=== PATIENT | female | born 1965 | race Caucasian/White ===

== ENCOUNTER 2019-02-04 14:03 | Emergency (ER) | payer MEDICAID ==
[~2019-02-04] VITALS: Ht 167.6 cm; Wt 108.9 kg
--- NOTE | 2019-02-04 14:12 | NUR ---
Patient ambulated to bed 3. RN evaluating patient at bedside.
[2019-02-04 14:15] VITALS: BP 143/93
--- NOTE | 2019-02-04 14:29 | NUR ---
C/O SHARP L BUTTOCKS RADIATING DOWN L LEG X2 MONTHS 07/05. DENIES RECENT INJURY/TRAUMA. PER PT, SHE HAS A HX OF SCIATICA NERVE PROBLEMS. PT REPORTS TAKING ALEVE AT HOME YESTERDAY EVENING WITH NO RELIEF. PT RESTING IN BED, BED IN LOW POSITION. AWAITING ERMD EVALUATION.
[2019-02-04] MEDS ORDERED: MORPHINE SULFATE 2 MG/ML SYR IM ONE (15:00)
--- NOTE | 2019-02-04 15:08 | NUR ---
Dr. Walsh re-evaluating patient at bedside.
[2019-02-04 15:22] VITALS: BP 138/90
--- NOTE | 2019-02-04 15:22 | NUR ---
Patient discharged with v/s stable. Written and verbal after care instructions given and explained. Patient alert, oriented and verbalized understanding of instructions. Ambulatory with steady gait. All questions addressed prior to discharge. ID band removed. Patient advised to follow up with PMD. Rx of TRAMADOL, ROBAXIN, AND MOTRIN given. Patient educated on indication of medication including possible reaction and side effects. Opportunity to ask questions provided and answered. PT IS HAVING BOYFRIEND DRIVE HER HOME.
== END 2019-02-04 15:22 | disposition home or self-care (01) ==
LOC: MED 14:03
DX: M54.42 Lumbago with sciatica, left side (principal); J44.9 Chronic obstructive pulmonary disease, unspecified; F17.200 Nicotine dependence, unspecified, uncomplicated
CPT/HCPCS: 96372; 99283; J2270

== ENCOUNTER 2019-02-26 10:00 | Emergency (ER) | payer MEDICAID ==
[~2019-02-26] VITALS: Ht 165.1 cm; Wt 101.8 kg
--- NOTE | 2019-02-26 10:14 | NUR ---
PT TO ER BED 4
[2019-02-26 10:18] VITALS: BP 140/53
[2019-02-26] MEDS ORDERED: MORPHINE SULFATE 4 MG/ML SYR IM ONE (11:35)
[2019-02-26] MEDS ORDERED: DEXAMETHASONE 10 MG/ML VIAL IM ONE (11:35)
[2019-02-26] MEDS ORDERED: KETOROLAC 60 MG/2 ML VIAL IM ONE (11:35)
--- NOTE | 2019-02-26 11:50 | NUR ---
C/O OF BACK PAIN X1 YEAR. PT REPORTS THAT PAIN HAS BEEN GETTING WORSE OVER TIME. PT REPORTS SHARP PAIN THAT STARTS IN LOWER BACK AND RADIATES DOWN TO BL HIPS. PT THINKS PAIN MIGHT BE GETTING WORSE BECAUSE SHE SLEEPS IN HER CAR. PCP IS NOT UNTIL 03/22 AND PT STATED SHE CANNOT WAIT THAT LONG. MEDHX:SCIATICA, COPD RX:BREO, ALBUTEROL
--- NOTE | 2019-02-26 11:54 | NUR ---
IM PAIN MEDS GIVEN-NADR AT THIS TIME
[2019-02-26 12:36] VITALS: BP 123/60
--- NOTE | 2019-02-26 12:37 | NUR ---
Patient discharged with v/s stable. Written and verbal after care instructions given and explained. Patient alert, oriented and verbalized understanding of instructions. Ambulatory with steady gait. All questions addressed prior to discharge. ID band removed. Patient advised to follow up with PMD. Rx of BACLOFEN given. Patient educated on indication of medication including possible reaction and side effects. Opportunity to ask questions provided and answered. HOMELESS PT WAIVER FROM DONE
== END 2019-02-26 12:37 | disposition home or self-care (01) ==
LOC: MED 10:00
DX: G89.29 Other chronic pain (principal); M54.5 Low back pain; J44.9 Chronic obstructive pulmonary disease, unspecified; Z59.0 Homelessness
CPT/HCPCS: 81002; 96372; 99283; J1100; J1885; J2270